=== PATIENT | female | born 1990 | race Caucasian/White ===

== ENCOUNTER 2022-09-14 11:12 | Inpatient (IN) | payer BC ==
[~2022-09-14 11:12] MED LIST: Lidocaine 1% 10 ML MDV ONE
[2022-09-14] MEDS ORDERED: Oxytocin/Lactated Ringers 10 UNIT/1,000 ML BAG IV SCH (12:00)
[2022-09-14] MEDS ORDERED: Sodium Chloride 0.9% 10 ML Syringe FLUSH PRN (12:00)
[2022-09-14] MEDS ORDERED: Nalbuphine 10 MG/0.5 ML Syringe IVPUSH PRN (12:00)
[2022-09-14] MEDS ORDERED: Bupivacaine/fentaNYL/NS 100 ML Bag EPIDUR PRN (13:03)
[2022-09-14] MEDS ORDERED: ePHEDrine 50 MG/ML SDV IVPUSH PRN (13:03)
[2022-09-14] MEDS ORDERED: diphenhydrAMINE 50 MG/ML SDV IVPUSH PRN (13:03)
[2022-09-14] MEDS ORDERED: fentaNYL 100 MCG/2 ML SDV EPIDUR PRN (13:03)
[2022-09-14] MEDS: Lactated Ringers 1,000 ML IV SCH ×3 (13:41→23:15)
[2022-09-14] MEDS: Oxytocin/Lactated Ringers 10 UNIT/1,000 ML BAG IV SCH (13:42)
[2022-09-14] MEDS ORDERED: Sodium Chloride 0.9% 10 ML Syringe FLUSH SCH (21:00)
[2022-09-14] MEDS ORDERED: Methylergonovine 0.2 MG/1 ML Amp IM STA (23:52)
[2022-09-15] MEDS: Oxytocin/Lactated Ringers 10 UNIT/1,000 ML BAG IV SCH (00:04)
[2022-09-15] MEDS ORDERED: Acetaminophen 325 MG Tab PO PRN (00:51)
[2022-09-15] MEDS ORDERED: Witch Hazel Medicated Pads 40/Jar TOP PRN (00:51)
[2022-09-15] MEDS ORDERED: Ibuprofen 600 MG Tab ONE (01:11)
[2022-09-15] MEDS: Ibuprofen 600 MG Tab PO PRN ×3 (01:12→17:33)
[2022-09-15] MEDS ORDERED: Acetaminophen 325 MG Tab ONE (03:06)
[2022-09-15] MEDS: Benzocaine/Menthol 20%-0.5% Spray 78 GM Cannister TOP PRN (06:22)
[2022-09-15] MEDS: Docusate Sodium 100 MG Cap PO PRN (09:54)
[2022-09-16] MEDS: Ibuprofen 600 MG Tab PO PRN (00:31)
[2022-09-16] MEDS: Benzocaine/Menthol 20%-0.5% Spray 78 GM Cannister TOP PRN (00:33)
[2022-09-16] MEDS: Docusate Sodium 100 MG Cap PO PRN (08:53)
== END 2022-09-16 09:16 | disposition home or self-care (01) | DRG 560 ==
LOC: JD.OBCHECK 11:12 → JD.OB 11:17 → JD.OBCHECK 11:34 → JD.OB 11:34 → OBSVTOIN 23:28 → JD.OB 23:29
PROVIDERS: ADMIT Obstetrics & Gynecology; ATTEND Obstetrics & Gynecology
PROC: 10E0XZZ Delivery of Products of Conception, External Approach (ICD-10-PCS; principal; 2022-09-14)
PROC: 0KQM0ZZ Repair Perineum Muscle, Open Approach (ICD-10-PCS; 2022-09-14)
PROC: 3E0R3BZ Introduction of Anesthetic Agent into Spinal Canal, Percutaneous Approach (ICD-10-PCS; 2022-09-14)
PROC: 00HU33Z Insertion of Infusion Device into Spinal Canal, Percutaneous Approach (ICD-10-PCS; 2022-09-14)
DX: O70.1 Second degree perineal laceration during delivery (principal); Z37.0 Single live birth; Z79.899 Other long term (current) drug therapy; Z3A.38 38 weeks gestation of pregnancy
CPT/HCPCS: 36415; 51702; 59020; 59409; 84112; 85025; 86592; A9270-GY; J2210; J2590; J3010; J7120

== ENCOUNTER 2024-05-17 00:23 | Inpatient (IN) | payer BC ==
[~2024-05-17 00:23] MED LIST changes: -Lidocaine 1% 10 ML MDV ONE; +ePHEDrine 50 MG/ML SDV ONE
[2024-05-17] MEDS ORDERED: Ondansetron 4 MG/2 ML SDV IVPUSH PRN (00:52)
[2024-05-17] MEDS ORDERED: Lidocaine 1% 50 ML MDV INJECT PRN (00:52)
[2024-05-17] MEDS ORDERED: Nalbuphine 10 MG/ML Syringe IVPUSH PRN (00:52)
[2024-05-17] MEDS ORDERED: Oxytocin/0.9 % Sodium Chloride 30 UNIT/500 ML BAG IV SCH (01:00)
[2024-05-17 01:10] LABS: BASOPHILS ABSOLUTE AUTO 0.1 K/mm3 (0.0-0.2); BASOPHILS PERCENT AUTO 0.5 % (0.0-1.0); EOSINOPHILS ABSOLUTE AUTO 0.3 K/mm3 (0.0-0.4); EOSINOPHILS PERCENT AUTO 2.2 % (0.0-6.0); HEMATOCRIT 39.1 % (37.0-47.0); HEMOGLOBIN 13.7 gm/dl (12.0-16.0); IMMATURE GRAN ABSOLUTE AUTO 0.07 K/mm3 (0.00-0.05); IMMATURE GRAN PERCENT AUTO 0.5 % (0.0-0.4); LYMPHOCYTES ABSOLUTE AUTO 4.4 K/mm3 (1.0-4.8); LYMPHOCYTES PERCENT AUTO 30.2 % (24.0-44.0); MEAN CORPUSCULAR HEMOGLOBIN 30.4 pg (28.0-32.0); MEAN CORPUSCULAR VOLUME 86.7 fl (83.0-99.0); MEAN PLATELET VOLUME 8.3 fl (9.4-12.3); MONOCYTES ABSOLUTE AUTO 0.9 K/mm3 (0.0-0.8); MONOCYTES PERCENT AUTO 6.1 % (0.0-8.0); NEUTROPHILS ABSOLUTE AUTO 8.9 K/mm3 (1.8-7.7); NEUTROPHILS PERCENT AUTO 60.5 % (41.0-71.0); PLATELET COUNT,PLT 131 K/mm3 (150-400); RED BLOOD CELL COUNT 4.51 M/mm3 (4.10-5.30); WHITE BLOOD CELL COUNT,WBC 14.68 K/mm3 (3.9-11.3)
[2024-05-17] MEDS: Lactated Ringers 1,000 ML IV SCH (01:32)
[2024-05-17] MEDS ORDERED: diphenhydrAMINE 50 MG/ML SDV IVPUSH PRN (02:00)
[2024-05-17] MEDS: Bupivacaine/fentaNYL/NS 100 ML Bag EPIDUR PRN (02:09)
[2024-05-17] MEDS: ePHEDrine 50 MG/ML SDV IVPUSH PRN (04:24)
[2024-05-17] MEDS: Oxytocin/0.9 % Sodium Chloride 30 UNIT/500 ML BAG IV SCH (05:27)
[2024-05-17] MEDS ORDERED: Docusate Sodium 100 MG Cap PO PRN (10:09)
[2024-05-17] MEDS ORDERED: Acetaminophen 325 MG Tab PO PRN (10:09)
[2024-05-17] MEDS: Benzocaine/Menthol 20%-0.5% Spray 78 GM Cannister TOP PRN (10:54)
[2024-05-17] MEDS: Witch Hazel Medicated Pads 40/Jar TOP PRN (10:57)
[2024-05-17] MEDS: Ibuprofen 600 MG Tab PO SCH ×2 (11:35→17:34)
== END 2024-05-18 14:20 | disposition home or self-care (01) | DRG 560 ==
LOC: JD.OBCHECK 00:23 → JD.OB 00:25 → JD.OBCHECK 00:32 → JD.OB 00:33 → OBSVTOIN 09:01 → JD.OB 09:02
PROVIDERS: ADMIT Obstetrics & Gynecology; ATTEND Obstetrics & Gynecology
PROC: 10E0XZZ Delivery of Products of Conception, External Approach (ICD-10-PCS; principal; 2024-05-17)
PROC: 3E0R3BZ Introduction of Anesthetic Agent into Spinal Canal, Percutaneous Approach (ICD-10-PCS; 2024-05-17)
PROC: 00HU33Z Insertion of Infusion Device into Spinal Canal, Percutaneous Approach (ICD-10-PCS; 2024-05-17)
DX: O48.0 Post-term pregnancy (principal); Z37.0 Single live birth; Z3A.40 40 weeks gestation of pregnancy; O70.0 First degree perineal laceration during delivery
CPT/HCPCS: 36415; 51701; 59025; 59409; 85025; 86592; 86850; 86900; 86901; A9270-GY; C1758; J3490; J7120; J7999